=== PATIENT | female | born 1970 | race Caucasian/White ===

== ENCOUNTER → 2016-09-07 | Outpatient (CLI) | payer BC | END | disposition home or self-care (01) | LOC: MAMMO 07:55 | PROVIDERS: ATTEND Family Medicine | DX: Z12.31 Encounter for screening mammogram for malignant neoplasm of breast (principal) | CPT/HCPCS: 77063; G0202; 77067 ==

== ENCOUNTER → 2016-09-24 | Outpatient (CLI) | payer BC ==
--- NOTE | 2016-09-24 11:33 | RAD ---
Exam performed: Right breast ultrasound. History: Abnormal mammogram. Date of service: 09/24/16. Comparison made to a screening mammogram from 09/07/16. Discussion: Sonographic evaluation of the right upper outer breast is performed and images are obtained. Normal fibroglandular densities are seen. No solid or cystic mass lesions are identified. Impression: No definite abnormality seen in the right breast ultrasound. A six-month follow-up right breast mammogram and ultrasound may be obtained to ensure interval stability. BI-RADS 3. Probably benign findings.
== END | disposition home or self-care (01) ==
LOC: US 10:08
PROVIDERS: ATTEND Family Medicine
DX: R92.8 Other abnormal and inconclusive findings on diagnostic imaging of breast (principal)
CPT/HCPCS: 76641

== ENCOUNTER → 2017-04-19 | Outpatient (CLI) | payer BC ==
--- NOTE | 2017-04-19 16:28 | RAD ---
DATE: 04/19/2017 EXAM: MAMMO JOSE L DIAG BILAT HISTORY: Abnormality seen on previous screening mammogram from 09/07/2016 COMPARISON: Mammogram from August 2016 and from 2012 This study was interpreted with the benefit of Computerized Aided Detection (CAD). FINDINGS: Breast Density: SCATTERED The breast parenchyma shows scattered fibroglandular densities. Breast parenchyma level B. The skin and nipples are within normal limits. Stable focal asymmetry seen in the upper outer right breast dating back to 2012 and most likely represents overlapping fibroglandular tissue. There is a new asymmetry in the posterior upper right breast approximately 10 cm from the nipple on MLO view. No suspicious calcifications. Asymmetry seen in the right breast likely at 7-9:00 position. Focal asymmetry also noted in the left upper outer quadrant, stable compared to prior study. IMPRESSION: 1. Stable right upper outer quadrant focal asymmetry most likely overlapping fibroglandular tissue. 2. Suggestion of asymmetry in the right anterior breast approximately at 7-9:00 position. Please see report on ultrasound from the same day. 3. New right posterior upper breast asymmetry. BI-RADS CATEGORY: 0 INCOMPLETE: NEED ADDITIONAL IMAGING EVAULATION AND/OR PRIOR MAMMOGRAMS FOR COMPARISON RECOMMENDED FOLLOW-UP: ADD ADDITIONAL IMAGING. Right posterior upper breast asymmetry (impression #3) evaluated with spot compression views and if needed ultrasound. Abnormality in the Impression #2 is evaluated on current ultrasound from the same day. PQRS compliance statement: Patient information was entered into a reminder system with a target due date for the next mammogram. Mammography is a sensitive method for finding small breast cancers, but it does not detect them all and is not a substitute for careful clinical examination. A negative mammogram does not negate a clinically suspicious finding and should not result in delay in biopsying a clinically suspicious abnormality. "Our facility is accredited by the [employer] Mammography [employer]."
--- NOTE | 2017-04-19 16:33 | RAD ---
Ultrasound bilateral breasts Indication: Follow-up and evaluation of Abnormality seen on the diagnostic mammogram and screening mammogram. Technique: Grayscale and color Doppler ultrasound images of the lateral breasts. Comparison: Same day diagnostic mammogram Findings: No solid or cystic lesion identified in the right breast from 7:00 to 9:00 position that corresponds to abnormality seen on the same day diagnostic mammogram. This likely suggests overlapping fibroglandular tissue. No solid or cystic lesion seen in the left breast in the upper outer quadrant. Couple of benign appearing lymph nodes are seen in the left axilla the largest measuring 1.1 x 1.2 x 0.6 cm. Impression: 1. No solid or cystic lesion in the right breast. 2. Couple of normal-appearing left axillary lymph node. The lesion in the right posterior upper breast seen on mammogram was not interrogated on the current ultrasound. This lesion was seen later after patient had left.. Repeat ultrasound recommended. BI-RADS 0: Incomplete. Ultrasound of the right posterior upper breast.
== END | disposition home or self-care (01) ==
LOC: MAMMO 13:56
PROVIDERS: ATTEND Family Medicine
DX: N64.89 Other specified disorders of breast (principal); N64.4 Mastodynia
CPT/HCPCS: 76641; G0204; G0279; 77062; 77066

== ENCOUNTER → 2017-05-01 | Outpatient (CLI) | payer BC ==
--- NOTE | 2017-05-01 16:10 | RAD ---
DATE: 05/01/2017 EXAM: DIGITAL DIAGNOSTIC RT, BREAST RIGHT HISTORY: Suspicious screening study COMPARISON: 04/19/2017, 09/07/2016, 08/31/2013 This study was interpreted with the benefit of Computerized Aided Detection (CAD). The breast parenchyma shows scattered fibroglandular densities. Breast parenchyma level B. FINDINGS: A spot compression oblique view of the posterior superior aspect of the right breast was performed in the area of concern described on the 04/19/2017 mammograms. There are patchy fibroglandular tissues in this region. The pattern appears unchanged since an oblique view from 08/31/2013. Right breast ultrasound, 04/19/2017: A targeted ultrasound exam of the upper outer quadrant of the right breast was performed. Normal heterogeneous fibroglandular shadows are present. No breast mass is seen. IMPRESSION: Stable right mammograms without evidence of malignancy. Follow-up right mammography in 6 months and then bilateral mammography at one year is suggested BI-RADS CATEGORY: 3 PROBABLY BENIGN FINDING(S)-SHORT INTERVAL FOLLOW-UP SUGGESTED RECOMMENDED FOLLOW-UP: 6M 6 MONTH FOLLOW-UP PQRS compliance statement: Patient information was entered into a reminder system with a target due date for the next mammogram. Mammography is a sensitive method for finding small breast cancers, but it does not detect them all and is not a substitute for careful clinical examination. A negative mammogram does not negate a clinically suspicious finding and should not result in delay in biopsying a clinically suspicious abnormality. "Our facility is accredited by the [employer] Mammography [employer]."
== END | disposition home or self-care (01) ==
LOC: MAMMO 13:40
PROVIDERS: ATTEND Family Medicine
DX: R92.8 Other abnormal and inconclusive findings on diagnostic imaging of breast (principal)
CPT/HCPCS: 76641; G0206; 77065

== ENCOUNTER → 2020-08-23 | Outpatient (CLI) | payer BC ==
[2020-08-23 16:03] LABS: BASO % 1 % (0-3); EOS # 0.2 x10^3/uL (0.0-0.7); EOS % 2 % (0-3); HEMATOCRIT 38.5 % (36.0-47.0); HEMOGLOBIN 12.5 g/dL (12.0-15.5); LYMPH # 2.4 x10^3/uL (1.0-4.8); LYMPH % 24 % (24-48); MEAN CORPUSCULAR HEMOGLOBIN 27 pg (25-35); MEAN CORPUSCULAR HGB CONC 33 g/dL (31-37); MEAN CORPUSCULAR VOLUME 83 fL (79-100); MONO # 0.6 x10^3/uL (0.0-1.1); MONO % 6 % (0-9); NEUT # 6.6 x10^3uL (1.8-7.7); NEUT % 67 % (31-73); PLATELET COUNT 418 x10^3/uL (140-400); RED BLOOD COUNT 4.62 x10^6/uL (3.50-5.40); RED CELL DISTRIBUTION WIDTH 15.3 % (11.5-14.5); WHITE BLOOD COUNT 9.8 x10^3/uL (4.0-11.0)
[2020-08-23 16:12] LABS: ALBUMIN 3.9 g/dL (3.4-5.0); ALBUMIN/GLOBULIN RATIO 1.1 (1.0-1.7); CALCIUM 9.3 mg/dL (8.5-10.1); CREATININE 1.1 mg/dL (0.6-1.0); POTASSIUM 3.7 mmol/L (3.5-5.1); TOTAL BILIRUBIN 0.2 mg/dL (0.2-1.0); TOTAL PROTEIN 7.5 g/dL (6.4-8.2)
[2020-08-23 23:07] LABS: ESTRADIOL LEVEL 245.1 pg/mL (.); FSH 7.7 mIU/mL (.); LUTEINIZING HORMONE 21.8 mIU/mL (.); PROGESTERONE 0.4 ng/mL (.)
[2020-08-24 00:07] LABS: HEMOGLOBIN A1C 5.3 % (4.8-5.6)
== END ==
LOC: LAB 15:13
PROVIDERS: ATTEND Nurse Practitioner Women's Health
DX: N92.0 Excessive and frequent menstruation with regular cycle (principal)
CPT/HCPCS: 36415; 80053; 82670; 83001; 83002; 83036; 84144; 84443; 85025

== ENCOUNTER → 2020-08-29 | Outpatient (CLI) | payer BC ==
--- NOTE | 2020-08-29 12:38 | RAD ---
EXAMINATION: US PELVIS COMPLETE, 08/29/2020 8:45 AM CLINICAL INDICATION: Irregular and frequent menses TECHNIQUE: Grayscale, color and spectral Doppler ultrasound images of the pelvis via transabdominal a nd transvaginal approach. COMPARISON: None. FINDINGS: The uterus measures 15.6 x 2.1 x 6.2 cm. The endometrial stripe measures 1 mm in thickness. There are multiple (at least 4) hypoechoic to isoechoic masses consistent with fibroids, all measuring approxi mately 2 cm maximum diameter. The right ovary measures 3.7 x 3.2 x 2.7 cm. The left ovary measures 2.7 x 2.8 x 3.1 cm. Ovaries are normal in appearance with normal color and spectral Doppler blood flow. No adnexal mass or free fluid . IMPRESSION: Multiple small fibroids in the uterus measuring approximately 2 cm in diameter. Electronically signed by: Kerri Saez MD (08/29/2020 12:35 PM) [id number]
--- NOTE | 2020-08-30 17:54 | RAD ---
DATE: 08/29/2020 EXAM: MAMMO JOSE L SCREENING BILATERAL HISTORY: Screening COMPARISON: 04/19/2017, 09/07/2016, 03/16/2013 This study was interpreted with the benefit of Computerized Aided Detection (CAD). Breast Density: SCATTERED The breast parenchyma shows scattered fibroglandular densities. Breast parenchyma level B. FINDINGS: Bilateral asymmetries are unchanged from 2013. No suspicious mass, calcification, or architectural distortion in either breast. IMPRESSION: No evidence of malignancy. BI-RADS CATEGORY: 2 BENIGN FINDING(S) RECOMMENDED FOLLOW-UP: 12M 12 MONTH FOLLOW-UP PQRS compliance statement: Patient information was entered into a reminder system with a target due date for the next mammogram. Mammography is a sensitive method for finding small breast cancers, but it does not detect them all and is not a substitute for careful clinical examination. A negative mammogram does not negate a clinically suspicious finding and should not result in delay in biopsying a clinically suspicious abnormality. "Our facility is accredited by the [employer] Mammography Program."
== END ==
LOC: US 07:41
PROVIDERS: ATTEND Nurse Practitioner Women's Health
DX: Z12.31 Encounter for screening mammogram for malignant neoplasm of breast (principal); D25.9 Leiomyoma of uterus, unspecified
CPT/HCPCS: 76856; 77063; 77067

== ENCOUNTER 2021-01-05 09:58 | Emergency (ER) | payer BC ==
[~2021-01-05] VITALS: Ht 167.6 cm; Wt 95.0 kg
--- NOTE | 2021-01-05 11:08 | RAD ---
INDICATION: Reason: SOB, COVID + / Spl. Instructions: / History: COMPARISON: None. FINDINGS: Single view of chest obtained. Cardiac silhouette is unremarkable. There is some mild patchy opacities bilaterally most prominent at the lower lungs. IMPRESSION: * Mild patchy airspace disease bilaterally which could be infectious in nature given the patient's s ymptoms. Electronically signed by: Bertin Arizmendi MD (01/05/2021 11:06 AM) [id number]
[2021-01-05] MEDS ORDERED: BENZONATATE 100 MG CAPSULE. PO ONE (11:15)
[2021-01-05] MEDS ORDERED: ONDANSETRON ODT 4 MG TAB.RAPDIS PO ONE (11:15)
--- NOTE | 2021-01-05 11:36 | PHYS DOC ---
Past History Past Surgical History: Tubal ligation Alcohol Use: None General Adult EDM: Chief Complaint: COUGH HPI: HPI: 50-year-old female diagnosed with COVID-19 9 days ago presents with worsening cough, shortness of breath, and near syncope. The patient is concerned that her symptoms may be getting worse and that she may be developing pneumonia. She denies chest pain. She has not had any syncopal episode. She has mild decrease in ability to do daily activities. She does not believe she has had a fever. Review of Systems: Review of Systems: Constitutional: Denies fever or chills Eyes: Denies change in visual acuity HENT: Denies nasal congestion or sore throat Respiratory: Cough with shortness of breath Cardiovascular: Denies chest pain or edema GI: nausea, vomiting. Denies abdominal pain, bloody stools or diarrhea : Denies dysuria Musculoskeletal: Denies back pain or joint pain Integument: Denies rash Neurologic: Denies headache, focal weakness or sensory changes Endocrine: Denies polyuria or polydipsia Lymphatic: Denies swollen glands Psychiatric: Denies depression or anxiety Current Medications: Current Meds: Current Medications Medications (Trade) Dose Ordered Sig/Roxann Start Time Stop Time Status Last Admin Dose Admin Benzonatate (Tessalon Perle) 100 mg 1X ONCE 01/05/21 11:15 01/05/21 11:16 DC Ondansetron HCl (Zofran Odt) 4 mg 1X ONCE 01/05/21 11:15 01/05/21 11:16 DC Allergies: Allergies: Allergies Coded Allergies Type Severity Reaction Last Updated Verified No Known Drug Allergies 01/05/21 No Physical Exam: PE: Constitutional: Well developed, well nourished, obese, no acute distress, non- toxic appearance. [] HENT: Normocephalic, atraumatic, bilateral external ears normal, oropharynx moist, no oral exudates, nose normal. [] Eyes: PERRLA, EOMI, conjunctiva normal, no discharge. [] Neck: Normal range of motion, no tenderness, supple, no stridor. [] Cardiovascular: Heart rate regular rhythm, no murmur [] Lungs & Thorax: Bilateral breath sounds clear to auscultation [] Abdomen: Bowel sounds normal, soft, no tenderness, no masses, no pulsatile masses. [] Skin: Warm, dry, no erythema, no rash. [] Back: No tenderness, no CVA tenderness. [] Extremities: No tenderness, no cyanosis, no clubbing, ROM intact, no edema. [] Neurologic: Alert and oriented X 3, normal motor function, normal sensory function, no focal deficits noted. [] Psychologic: Affect normal, judgement normal, mood normal. [] Current Patient Data: Vital Signs: Vital Signs Date Time Temp Pulse Resp B/P (MAP) Pulse Ox O2 Delivery O2 Flow Rate FiO2 01/05/21 10:23 98.5 87 16 137/94 93 Room Air EKG: EKG: Sinus rhythm, rate 78, normal axis, no ST elevation or depression. [] Radiology/Procedures: Radiology/Procedures: [] Impressions: INDICATION: Reason: SOB, COVID + / Spl. Instructions: / History: COMPARISON: None. FINDINGS: Single view of chest obtained. Cardiac silhouette is unremarkable. There is some mild patchy opacities bilaterally most prominent at the lower lungs. IMPRESSION: * Mild patchy airspace disease bilaterally which could be infectious in nature given the patient's symptoms. Electronically signed by: Aliyah Arizmendi MD (01/05/2021 11:06 AM) DESKTOP- [id number] DICTATED AND SIGNED BY: ALIYAH ARIZMENDI MD DATE: 01/05/21 1105 CC: MARY CHRISTIAN DO; VIET YA MD ~MTH0 0 Heart Score: C/O Chest Pain: N/A Risk Factors: Risk Factors: DM, Current or recent (<one month) smoker, HTN, HLP, family history of CAD, obesity. Risk Scores: Score 0 - 3: 2.5% MACE over next 6 weeks - Discharge Home Score 4 - 6: 20.3% MACE over next 6 weeks - Admit for Clinical Observation Score 7 - 10: 72.7% MACE over next 6 weeks - Early Invasive Strategies Course & Med Decision Making: Course & Med Decision Making Pertinent Labs and Imaging studies reviewed. (See chart for details) The patient's labs are unremarkable. Her chest x-ray shows mild bilateral patchy opacities which could be consistent with COVID-19. Since I cannot rule out bacterial pneumonia I will also treat her for atypical pneumonia with azithromycin. First dose in the ED. Her oxygen saturation is above 93% on room air. She does not meet admission criteria. I have given her Tessallucas Perlnj for cough. She is stable for discharge at this time. [] Dragon Disclaimer: Dragon Disclaimer: This electronic medical record was generated, in whole or in part, using a voice recognition dictation system. Departure Departure: Impression: Primary Impression: COVID-19 Disposition: HOME / SELF CARE / HOMELESS Condition: STABLE Referrals: VIET YA MD (PCP) Scripts Azithromycin (AZITHROMYCIN TABLET) 250 Mg Tablet 250 MG PO DAILY for ANTI-BIOTIC for 4 Days, #4 TAB 0 Refills start 01/06/2021 Prov: MARY CHRISTIAN DO 01/05/21 MARY CHRISTIAN DO Jan 05, 2021 11:36
--- NOTE | 2021-01-05 11:52 | EKG ---
[address] [address] Test Date: 2021-01-05 Test Time: 11:20:02 Pat Name: RANDELL MOLINA Department: Room: Gender: F Rn Documentation: JOSE : 1970 Requested By: MARY CHRISTIAN Order Number: [id number] Reading MD: Measurements Intervals [place] Rate: 78 P: 0 GA: 136 QRS: 62 QRSD: 90 T: 6 QT: 364 QTc: 418 Interpretive Statements SINUS RHYTHM R-S TRANSITION ZONE IN V LEADS DISPLACED TO THE LEFT OTHERWISE NORMAL ECG RI6.02 No previous ECG available for comparison
[2021-01-05] MEDS ORDERED: AZITHROMYCIN 250 MG TABLET. PO ONE (12:00)
[2021-01-05 12:12] LABS: BASO % 0 % (0-3); EOS % 1 % (0-3); HEMATOCRIT 37.7 % (36.0-47.0); HEMOGLOBIN 12.5 g/dL (12.0-15.5); LYMPH # 1.1 x10^3/uL (1.0-4.8); LYMPH % 23 % (24-48); MEAN CORPUSCULAR HEMOGLOBIN 27 pg (25-35); MEAN CORPUSCULAR HGB CONC 33 g/dL (31-37); MEAN CORPUSCULAR VOLUME 83 fL (79-100); MONO # 0.2 x10^3/uL (0.0-1.1); MONO % 5 % (0-9); NEUT # 3.3 x10^3uL (1.8-7.7); NEUT % 71 % (31-73); PLATELET COUNT 187 x10^3/uL (140-400); RED BLOOD COUNT 4.56 x10^6/uL (3.50-5.40); WHITE BLOOD COUNT 4.7 x10^3/uL (4.0-11.0)
[2021-01-05 12:38] LABS: CALCIUM 8.2 mg/dL (8.5-10.1); CREATININE 0.8 mg/dL (0.6-1.0); GFR 76.6; POTASSIUM 4.4 mmol/L (3.5-5.1)
[2021-01-05 12:45] LABS: ALBUMIN 3.4 g/dL (3.4-5.0); ALBUMIN/GLOBULIN RATIO 1.2 (1.0-1.7); TOTAL BILIRUBIN 0.3 mg/dL (0.2-1.0); TOTAL PROTEIN 6.3 g/dL (6.4-8.2)
[2021-01-05] MEDS ORDERED: AZIT250T6 PO (12:58)
[2021-01-05 13:08] VITALS: BP 135/90
== END 2021-01-05 13:10 | disposition home or self-care (01) ==
LOC: ER 09:58
DX: U07.1 COVID-19 (principal)
CPT/HCPCS: 36415; 71045; 80053; 84484; 85025; 93005; 99285; C9803; Q0162; U0003

== ENCOUNTER → 2021-02-15 | Outpatient (CLI) | payer BC ==
[~2021-02-15] MED LIST: AZIT250T6 PO
--- NOTE | 2021-02-15 16:54 | RAD ---
EXAMINATION: US PELVIS COMPLETE INDICATION: 50 years, Female, follow-up uterine fibroids, menorrhagia. COMPARISON: 08/29/2020 TECHNIQUE: Transabdominal ultrasound of the pelvis was performed with grayscale, spectral, and color doppler imaging. FINDINGS: UTERUS: Position: Anteverted Measures: 13.0 x 8.1 x 5.3 cm. Uterine/Endometrial Morphology: Multiple small intramural fibroids, the largest in the posterior uter ine body measures 3.2 cm, previously measured 2.8 cm. Endometrial Thickness: 2.3 cm, normal limits. RIGHT OVARY/ADNEXA: Measures: 3.4 x 2.8 x 1.5 cm. Right Ovarian Morphology: Unremarkable. Right Ovarian Color And Spectral Doppler Flow: Normal. LEFT OVARY/ADNEXA: Measures: 2.8 x 2.1 x 1.8 cm. Left Ovarian Morphology: Unremarkable. Left Ovarian Color And Spectral Doppler Flow: Normal. OTHER: Fluid/Cul-De-Sac: None. IMPRESSION: Multiple small intramural fibroids, stable to minimally increasing size since comparison, with allowi ng differences in technique. Electronically signed by: Lesley Mendez MD (02/15/2021 4:52 PM) [id number]
== END ==
LOC: US 15:35
PROVIDERS: ATTEND Nurse Practitioner Women's Health
DX: D25.1 Intramural leiomyoma of uterus (principal); N92.0 Excessive and frequent menstruation with regular cycle
CPT/HCPCS: 76856

== ENCOUNTER 2021-07-29 16:52 | Emergency (ER) | payer BC ==
[~2021-07-29] VITALS: Ht 167.6 cm; Wt 95.0 kg
[2021-07-29 16:52] VITALS: BP 149/85
--- NOTE | 2021-07-29 17:36 | PHYS DOC ---
Past History Past Surgical History: Hysterectomy, Tubal ligation Alcohol Use: None General Adult EDM: Chief Complaint: EYE PROBLEMS HPI: HPI: Patient is a 51-year-old female who presents with contact stuck in her eye. Patient states she went to urgent care and they were unable to remove it. Denies flushing her eye at home. Patient denies pain. Patient's eye is bloodshot and irritated. Patient states the urgent care doctor put numbing medication in her eye prior to arrival. No medical history. Review of Systems: Review of Systems: ROS At least 10 ROS systems have been reviewed and are negative except as documented in the HPI. General: Negative except as outlined in HPI above. Skin: Negative except as outlined in HPI above. HEENT: Negative except as outlined in HPI above. Neck: Negative except as outlined in HPI above. Respiratory: Negative except as outlined in HPI above.. Cardiovascular: Negative except as outlined in HPI above. Abdomen: Negative except as outlined in HPI above. : Negative except as outlined in HPI above. Back/MSK: Negative except as outlined in HPI above. Neuro: Negative except as outlined in HPI above. Psych: Negative except as outlined in HPI above. Allergies: Allergies: Allergies Coded Allergies Type Severity Reaction Last Updated Verified No Known Drug Allergies 01/05/21 No Physical Exam: PE: Constitutional: Well developed, well nourished, no acute distress, non-toxic appearance. [] HENT: Normocephalic, atraumatic, bilateral external ears normal, oropharynx moist, no oral exudates, nose normal. [] Eyes: PERRLA, sclera is red, irritated, conjunctiva normal, no discharge. [] Neck: Normal range of motion, no tenderness, supple, no stridor. [] Cardiovascular:Heart rate regular rhythm, no murmur [] Lungs & Thorax: Bilateral breath sounds clear to auscultation [] Abdomen: Bowel sounds normal, soft, no tenderness, no masses, no pulsatile masses. [] Skin: Warm, dry, no erythema, no rash. [] Back: No tenderness, no CVA tenderness. [] Extremities: No tenderness, no cyanosis, no clubbing, ROM intact, no edema. [] Neurologic: Alert and oriented X 3, normal motor function, normal sensory function, no focal deficits noted. [] Psychologic: Affect normal, judgement normal, mood normal. [] Current Patient Data: Vital Signs: Vital Signs Date Time Temp Pulse Resp B/P (MAP) Pulse Ox O2 Delivery O2 Flow Rate FiO2 07/29/21 16:52 103 149/85 (106) 100 07/29/21 16:52 16 Room Air EKG: EKG: [] Radiology/Procedures: Radiology/Procedures: [] Heart Score: C/O Chest Pain: No Risk Factors: Risk Factors: DM, Current or recent (<one month) smoker, HTN, HLP, family history of CAD, obesity. Risk Scores: Score 0 - 3: 2.5% MACE over next 6 weeks - Discharge Home Score 4 - 6: 20.3% MACE over next 6 weeks - Admit for Clinical Observation Score 7 - 10: 72.7% MACE over next 6 weeks - Early Invasive Strategies Course & Med Decision Making: Course & Med Decision Making Pertinent Labs and Imaging studies reviewed. (See chart for details) [] 51-year-old female presents with a contact stuck in her right eye. Patient was seen at urgent care unable to get it removed at that time. Had placement flush eye. Patient had tetracaine placed to help with pain. Mo rgan lens applied. Patient reports pain is still improved. I am unable to see the contact lens in the patient's eye. Advised patient she most likely has scratched her eye and is creating discomfort. Patient sent home with antibiotic eyedrops and eyedrops for pain. 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 Patient's verbalizes understanding of discharge instructions. Milton Disclaimer: Milton Disclaimer: This electronic medical record was generated, in whole or in part, using a voice recognition dictation system. Departure Departure: Impression: Primary Impression: Red eye associated with contact lens Disposition: HOME / SELF CARE / HOMELESS Condition: STABLE Referrals: VIET YA MD (PCP) Patient Instructions: Eye - Foreign Body, [id number] Additional Instructions: You are seen in the emergency room for contactants stuck in your eye. EMERGENCY DEPARTMENT GENERAL DISCHARGE INSTRUCTIONS Thank you for coming to [facility] (ED) today and trusting us with you care. We trust that you had a positivie experience in our Emergency Department. If you wish to speak to the department management, you may call the director at [phone]. YOUR FOLLOW UP INSTRUCTIONS ARE FOLLOWS: 1. Do you have a private Doctor? If you do not have a private doctor, please ask for a resource list of physicians or clinics that may be able to assist you with follow up care. 2. The Emergency Physician has interpreted your x-rays. The X-Ray specialist will also review them. If there is a change in the findings, you will be notified in 48 hours when at all possible. 3. A lab test or culture has been done, your results will be reviewed and you will be notified if you need a change in treatment. ADDITIONAL INSTRUCTIONS AND INFORMATION: 1. Your care today has been supervised by a physician who is specially trained in emergency care. Many problems require more than one evaluation for a complete diagnosis and treatment. We recommend that you schedule your follow up appointment as recommended to ensure complete treatment of you illness or injury. If you are unable to obtain follow up care and continue to have a problem, or if your condition worsens, we recommend that you return to the ED. 2. We are not able to safely determine your condition over the phone nor are we able to give sound medical advice over the phone. For these safety reasons, if you call for medical advice we will ask you to come to the ED for further evaluation. 3. If you have any questions regarding these discharge instructions please call the ED at [phone]. SAFETY INFORMATION: In the interest of safety, wellness, and injury prevention; we encourage you to wear your sealbelt, if you smoke; quite smoking, and we encourage family to use a protective helmet for bicycling and other sporting events that present an increased risk for head injury. IF YOUR SYMPTOMS WORSEN OR NEW SYMPTOMS DEVELOP, OR YOU HAVE CONCERNS ABOUT YOUR CONDITION; OR IF YOUR CONDITION WORSENS WHILE YOU ARE WAITING FOR YOUR FOLLOW UP APPOINTMENT; EITHER CONTACT YOUR PRIMARY CARE DOCTOR, THE PHYSICIAN WHOSE NAME AND NUMBER YOU WERE GIVEN, OR RETURN TO THE ED IMMEDIATELY. FEROZ BROWN APRN Jul 29, 2021 17:36
[2021-07-29] MEDS ORDERED: TETRACAINE 0.5% OPHTH SOLUTION 4ML BOTTLE. OD ONE (18:30)
[2021-07-29] MEDS ORDERED: GENTAMICIN 0.3% OPHTH SOLUTION 5ML BOTTLE. OD ONE (19:15)
[2021-07-29] MEDS ORDERED: CYCLOPENTOLATE 1% OPTH SOLUTION 2ML BOTTLE. OD ONE (19:15)
== END 2021-07-29 19:33 | disposition home or self-care (01) ==
LOC: ER 16:52
DX: T15.81XA Foreign body in other and multiple parts of external eye, right eye, initial encounter (principal); H57.89 Other specified disorders of eye and adnexa; X58.XXXA Exposure to other specified factors, initial encounter; Y93.89 Activity, other specified; Y92.89 Other specified places as the place of occurrence of the external cause; Y99.8 Other external cause status
CPT/HCPCS: 99284